=== PATIENT | male | born 1955 | race American Indian/Alaskan Native ===

== ENCOUNTER 2021-05-24 14:13 | Emergency (ER) | payer MEDICARE ==
[2021-05-24] MEDS ORDERED: ACETAMINOPHEN 325 MG TAB PO ONE (18:52)
--- NOTE | 2021-05-24 19:17 | XRay Report ---
Right shoulder, 3 views HISTORY: Trauma FINDINGS: No acute fracture or malalignment. No focal soft tissue abnormality. Signer Name: Armaan Guerrero MD Signed: 05/24/2021 7:13 PM Workstation Name: [id number]
--- NOTE | 2021-05-24 19:18 | XRay Report ---
Cervical spine, 3 views HISTORY: Trauma FINDINGS: Straightening of normal cervical lordosis. Cervical spinal alignment is preserved. Moderate to severe disc space height loss at C4-C5 through C6-C7. No evidence of fracture. Prevertebral soft tissues are within normal limits. Visualized lung apices are clear. IMPRESSION: Moderate cervical spondylosis. No acute process. Signer Name: Armaan Guerrero MD Signed: 05/24/2021 7:14 PM Workstation Name: [id number]
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
[2021-05-24 20:23] VITALS: BP 121/74
== END 2021-05-24 20:21 | disposition home or self-care (01) ==
LOC: ED 14:13
DX: M47.812 Spondylosis without myelopathy or radiculopathy, cervical region (principal); M25.511 Pain in right shoulder; Z91.030 Bee allergy status; V89.2XXA Person injured in unspecified motor-vehicle accident, traffic, initial encounter; Y93.89 Activity, other specified; Y92.488 Other paved roadways as the place of occurrence of the external cause; Y99.8 Other external cause status
CPT/HCPCS: 72040; 99283

== ENCOUNTER 2021-09-24 13:17 | Emergency (ER) | payer MEDICARE ==
--- NOTE | 2021-09-24 14:03 | XRay Report ---
CHEST 2 VIEWS INDICATION / CLINICAL INFORMATION: generalized. COMPARISON: None available. FINDINGS: SUPPORT DEVICES: None. HEART / MEDIASTINUM: No significant abnormality. LUNGS / PLEURA: No significant pulmonary or pleural abnormality. No pneumothorax. ADDITIONAL FINDINGS: No significant additional findings. IMPRESSION: 1. No acute findings. Signer Name: Max Newberry Jr, MD Signed: 09/24/2021 1:59 PM Workstation Name: [id number]
[2021-09-24 15:09] LABS: Basophils % (Auto) 0.6 % (0.0-1.8); Eosinophils % (Auto) 0.1 % (0.0-4.3); Hematocrit 39.8 % (35.5-45.6); Hemoglobin 12.5 gm/dl (11.8-15.2); Lymphocytes % (Auto) 13.9 % (13.4-35.0); Mean Corpuscular HGB Conc 31 % (32-34); Mean Corpuscular Volume 84 fl (84-94); Monocytes # (Auto) 1.2 K/mm3 (0.0-0.8); Monocytes % (Auto) 15.5 % (0.0-7.3); Platelet Count 205 K/mm3 (140-440); Red Blood Count 4.77 M/mm3 (3.65-5.03); Red Cell Distribution Width 15.6 % (13.2-15.2)
[2021-09-24] MEDS ORDERED: MAGNESIUM SULFATE 2 GM/50 ML BAG IV ONE (16:05)
[2021-09-24 16:57] LABS: Alanine Aminotransferase 10 units/L (7-56); Albumin 4.6 g/dL (3.9-5); BUN/Creatinine Ratio 9; Blood Urea Nitrogen 12 mg/dL (9-20); Calcium 10.4 mg/dL (8.4-10.2); Hemolysis Index 8
[2021-09-24] MEDS ORDERED: ACETAMINOPHEN 500 MG TAB PO ONE (17:53)
--- NOTE | 2021-09-25 01:03 | Emergency Department Report ---
ED General Adult HPI - General Chief complaint: Pain General Stated complaint: EVALUATION PUI?: No Source: EMS Mode of arrival: Stretcher Limitations: No Limitations - History of Present Illness Initial comments: Patient 66-year-old male who presents for fever and chills x1 week. Patient states cough nonproductive. There is no wheezing or stridor. Pain is described as achy throat burning with swallowing. symptoms are exacerbated by bending and twisting. Patient denies fall injury or trauma. There is no shortness of breath no nausea no vomiting no lightheadedness or dizziness. No weakness or decrease in bowel or bladder function. Severity scale (0 -10): 1 - Related Data Previous Rx's Medication Instructions Recorded Last Taken Type Cyclobenzaprine HCl [Flexeril 5 MG 5 mg PO HS 15 Days #15 tab 05/24/21 Unknown Rx TAB] Acetaminophen [Acetaminophen TAB] 1,000 mg PO Q6HR PRN #30 tablet 09/25/21 Unknown Rx Allergies Allergy/AdvReac Type Severity Reaction Status Date / Time insect venom Allergy Hives Verified 05/24/21 16:13 ED Review of Systems ROS: Stated complaint: EVALUATION Other details as noted in HPI Constitutional: denies: chills, fever Eyes: denies: eye pain, eye discharge, vision change ENT: denies: ear pain, throat pain Respiratory: denies: cough, shortness of breath, wheezing Cardiovascular: as per HPI Endocrine: no symptoms reported Gastrointestinal: denies: abdominal pain, nausea, diarrhea Genitourinary: denies: urgency, dysuria Musculoskeletal: back pain. denies: joint swelling, arthralgia Skin: denies: rash, lesions Neurological: denies: headache, weakness, paresthesias ED Past Medical Hx - Past Medical History Hx Hypertension: Yes Hx Diabetes: Yes - Medications Home Medications: Home Medications Medication Instructions Recorded Confirmed Last Taken Type Cyclobenzaprine HCl [Flexeril 5 MG 5 mg PO HS 15 Days #15 tab 05/24/21 Unknown Rx TAB] Acetaminophen [Acetaminophen TAB] 1,000 mg PO Q6HR PRN #30 tablet 09/25/21 Unkn own Rx ED Physical Exam - General Limitations: No Limitations General appearance: alert, in no apparent distress - Head Head exam: Present: normocephalic, normal inspection - Eye Eye exam: Present: PERRL, EOMI Pupils: Present: normal accommodation - ENT ENT exam: Present: mucous membranes moist. Absent: normal orophraynx - Neck Neck exam: Present: normal inspection, meningismus ED Course Vital Signs 09/24/21 09/24/21 13:26 17:54 Temperature 100.3 F H 101.6 F H Pulse Rate 92 H 96 H Respiratory 18 18 Rate Blood Pressure 147/83 Blood Pressure 148/88 [Left] O2 Sat by Pulse 99 98 Oximetry ED Medical Decision Making - Lab Data Result diagrams: 09/24/21 14:15 09/24/21 14:15 - Radiology Data Radiology results: report reviewed, image reviewed HEST 2 VIEWS INDICATION / CLINICAL INFORMATION: generalized. COMPARISON: None available. FINDINGS: SUPPORT DEVICES: None. HEART / MEDIASTINUM: No significant abnormality. LUNGS / PLEURA: No significant pulmonary or pleural abnormality. No pneumothorax. ADDITIONAL FINDINGS: No significant additional findings. IMPRESSION: 1. No acute findings. Signer Name: Max Alcaraz Jr, MD Signed: 09/24/2021 1:59 PM Workstation Name: [id number] Transcribed By: TTR Dictated By: MAX ALCARAZ JR, MD Electronically Authenticated By: MAX ALCARAZ JR, MD Signed Date/Time: 09/24/211358 DD/ 58 TD/TT: - Medical Decision Making Chest x-ray normal no infiltrates no opacities. There is no cough there is no rigors or chills. There is been no nausea or vomiting. Alert oriented x3 amatory steady gait there is no wheezing no stridor. Cough is nonproductive. Airways patent respirations are even and nonlabored. Plan DC to home follow-up with your primary care doctor in 2 to 3 days. Return to the emergency department should symptoms worsen. Critical care attestation.: If time is entered above; I have spent that time in minutes in the direct care of this critically ill patient, excluding procedure time. ED Disposition Clinical Impression: Viral syndrome Disposition: 01 HOME / SELF CARE / HOMELESS Is pt being admited?: No Does the pt Need Aspirin: No Condition: Stable Instructions: Viral Respiratory Infection, Hand Washing, [id number] Additional Instructions: Take medications as prescribed, follow-up with primary care doctor in 2 to 3 da ys. Return to emergency department should symptoms worsen. Prescriptions: Acetaminophen [Acetaminophen TAB] 1,000 mg PO Q6HR PRN #30 tablet PRN Reason: pain fever Referrals: TATI MARIE MD [Staff Physician] - 3-5 Days Forms: Work/School Release Form(ED) Time of Disposition: 01:49
[2021-09-25 03:02] VITALS: BP 148/88
== END 2021-09-25 03:02 | disposition home or self-care (01) ==
LOC: ED 13:17
DX: B34.9 Viral infection, unspecified (principal); I10 Essential (primary) hypertension; E11.9 Type 2 diabetes mellitus without complications
CPT/HCPCS: 36415; 71046; 80053; 85025; 99284; J3475